=== PATIENT | male | born 1995 | race Caucasian/White ===

== ENCOUNTER 2016-06-30 10:57 | Emergency (ER) | payer BC ==
[2016-06-30 11:07] VITALS: BP 141/63
--- NOTE | 2016-06-30 11:28 | UC ---
Throat Pain/Nasal Delio HPI - HPI Summary HPI Summary: Nasal congestion, sneezing, facial pressure, productive cough with thick mucus of multiple colors starting 5 weeks ago. Has not been well at any point since sx started. Tried corinna D, mucinex, albuterol, and prednisone all s relief. Denies fever or fatigue. - History of Current Complaint Chief Complaint: UCRespiratory Stated Complaint: SINUS,SORE THROAT,CHEST CONGESTION Time Seen by Provider: 06/30/16 11:09 Hx Obtained From: Patient Onset/Duration: Gradual Onset, Lasting Weeks Severity: Mild Cough: Productive Associated Signs & Symptoms: Positive: Sinus Discomfort, Nasal Discharge. Negative: Wheezing, Fever, Vomiting - Allergies/Home Medications Allergies/Adverse Reactions: Allergies Allergy/AdvReac Type Severity Reaction Status Date / Time Amoxicillin Allergy Hives Verified 06/30/16 11:03 Penicillins Allergy Hives Verified 06/30/16 11:03 PMH/Surg Hx/FS Hx/Imm Hx Endocrine History Of: Denies: Diabetes Cardiovascular History Of: Denies: Cardiac Disorders GI/ History Of: Denies: Ulcer - Surgical History Surgical History: Yes Surgery Procedure, Year, and Place: T&A, 2000, [facility] Dr. Montelongo - Family History Known Family History: Positive: Hypertension - Social History Occupation: Student Alcohol Use: Weekly Substance Use Type: None Smoking Status (MU): Never Smoked Tobacco - Immunization History Most Recent Influenza Vaccination: Not the 2015/2016 Season Most Recent Tetanus Shot: 2013 Vaccination Up to Date: Yes Review of Systems Constitutional: Negative Skin: Negative Eyes: Negative ENT: Nasal Discharge Respiratory: Cough Cardiovascular: Negative Gastrointestinal: Negative Genitourinary: Negative Motor: Negative Neurovascular: Negative Musculoskeletal: Negative Neurological: Negative Psychological: Negative All Other Systems Reviewed And Are Negative: Yes Physical Exam Triage Information Reviewed: Yes Appearance: Well-Appearing, No Pain Distress, Well-Nourished Vital Signs: Initial Vital Signs Temp 98.2 F 06/30/16 11:01 Pulse 80 06/30/16 11:01 Resp 16 06/30/16 11:01 BP 141/63 06/30/16 11:01 Pulse Ox 99 06/30/16 11:01 Vital Signs Reviewed: Yes Eye Exam: Normal Eyes: Positive: Conjunctiva Clear ENT: Positive: Hearing grossly normal, Pharynx normal, Nasal congestion, TMs normal. Negative: Tonsillar swelling - s/p tonsillectomy Dental Exam: Normal Neck exam: Normal Neck: Positive: Supple, Nontender, No Lymphadenopathy Respiratory Exam: Normal Respiratory: Positive: Chest non-tender, Lungs clear, Normal breath sounds, No respiratory distress, No accessory muscle use Cardiovascular Exam: Normal Cardiovascular: Positive: RRR, No Murmur Musculoskeletal Exam: Normal Neurological Exam: Normal Neurological: Positive: Alert Psychological Exam: Normal Skin Exam: Normal Throat Pain/Nasal Course/Dx - Differential Dx/Diagnosis Provider Diagnoses: acute bacterial sinusitis. elevated blood pressure due to discomfort Discharge - Discharge Plan Condition: Stable Disposition: HOME Prescriptions: DOXYcycline CAP(*) [DOXYcycline 100MG CAP(*)] 100 mg PO BID #20 cap Patient Education Materials: Rhinosinusitis (ED) Referrals: Pito Oneill [Primary Care Provider] - Additional Instructions: Call or return if you develop increasing fever, shortness of breath, chest pain , bloody sputum, or otherwise worsen. If you have not improved at all after several days, contact your primary care physician or return here. Make sure you cover exposed skin and use sunscreen while you are taking this antibiotic, as it can make you very prone to sunburn.
== END 2016-06-30 11:32 | disposition home or self-care (01) ==
LOC: UCCORT 10:57
DX: J01.90 Acute sinusitis, unspecified (principal); R03.0 Elevated blood-pressure reading, without diagnosis of hypertension; Z88.0 Allergy status to penicillin
CPT/HCPCS: 99212; G0463